=== PATIENT | female | born 1965 | race American Indian/Alaskan Native ===

== ENCOUNTER 2016-07-17 09:06 | Outpatient (CLI) | payer BC ==
--- NOTE | 2016-07-17 16:37 | Mammography Report ---
Diagnostic left mammogram and targeted left breast ultrasound. History: Recall for left parenchymal asymmetry. Findings: Spot compression images in both projections and a 90 degree view confirmed the presence of an ovoid shaped parenchymal asymmetry at the 9:00 position approximately 5 cm from the nipple. Targeted ultrasound demonstrates an ovoid shaped complex lesion measuring 5 x 3 mm corresponding in size and location to the mammographic density. The margins are circumscribed and there is no acoustic shadowing. Low level anterior echoes are present. Impression: 5 mm lesion described above demonstrates benign imaging features, probably representing a complex cyst. BI-RADS code: 3. Recommendation: A six-month followup study is recommended.
== END 2016-07-17 09:07 | disposition home or self-care (01) ==
LOC: MAMMO 09:06
PROVIDERS: ATTEND Obstetrics & Gynecology
DX: N64.89 Other specified disorders of breast (principal)
CPT/HCPCS: 76642; G0206

== ENCOUNTER 2016-08-01 08:48 | Outpatient (CLI) | payer BC ==
[2016-08-01 09:34] LABS: Alanine Aminotransferase 116 units/L (7-56); Albumin 4.1 g/dL (3.9-5); Albumin/Globulin Ratio 1.1 %; Alkaline Phosphatase 213 units/L (35-129); Bilirubin,Direct < 0.2 mg/dL (0-0.2); Bilirubin,Total 0.8 mg/dL (0.1-1.2); Total Protein 7.8 g/dL (6.3-8.2)
== END 2016-08-01 08:49 | disposition home or self-care (01) ==
LOC: LAB 08:48
PROVIDERS: ATTEND Obstetrics & Gynecology
DX: Z11.3 Encounter for screening for infections with a predominantly sexual mode of transmission (principal); R94.5 Abnormal results of liver function studies
CPT/HCPCS: 36415; 80074; 86689; 86706; 86803

== ENCOUNTER 2017-05-30 09:26 | Outpatient (CLI) | payer BC ==
[2017-05-30 09:38] LABS: Hematocrit 42.9 % (30.3-42.9); Hemoglobin 14.4 gm/dl (10.1-14.3); Mean Corpuscular HGB Conc 34 % (30-34); Mean Corpuscular Hemoglobin 32 pg (28-32); Mean Corpuscular Volume 94 fl (79-97); Platelet Count 224 K/mm3 (140-440); Red Blood Count 4.55 M/mm3 (3.65-5.03); Red Cell Distribution Width 13.3 % (13.2-15.2)
[2017-05-30 10:01] LABS: Alanine Aminotransferase 61 units/L (7-56); Albumin 4.3 g/dL (3.9-5); BUN/Creatinine Ratio 24; Blood Urea Nitrogen 19 mg/dL (7-17); Calcium 9.2 mg/dL (8.4-10.2); Chol/HDL Ratio 3.08 %; HDL Cholesterol 59 mg/dL (40-59); Hemolysis Index 3; LDL Cholesterol,Direct 112 mg/dL (50-130)
== END 2017-05-30 09:27 | disposition home or self-care (01) ==
LOC: LAB 09:26
PROVIDERS: ATTEND Obstetrics & Gynecology
DX: Z13.1 Encounter for screening for diabetes mellitus (principal); Z13.220 Encounter for screening for lipoid disorders; Z13.21 Encounter for screening for nutritional disorder; Z13.0 Encounter for screening for diseases of the blood and blood-forming organs and certain disorders involving the immune mechanism; Z11.3 Encounter for screening for infections with a predominantly sexual mode of transmission; R79.89 Other specified abnormal findings of blood chemistry
CPT/HCPCS: 36415; 80053; 80061; 82306; 83036; 84443; 85027; 86592; 86706; 86803; 87806

== ENCOUNTER 2017-08-15 09:42 | Outpatient (CLI) | payer BC ==
--- NOTE | 2017-08-17 11:46 | Mammography Report ---
BILATERAL DIGITAL SCREENING MAMMOGRAM with CAD and DIGITAL BREAST TOMOSYNTHESIS (DBT) : 08/15/17 CLINICAL: Routine screening. COMPARISON:06/14/16 and 08/11/14 mammograms. FINDINGS: The breasts are heterogeneously dense, which may obscure small masses. Surgical clips in the left upper breast. Bilateral scattered benign calcifications.Left lower inner benign intraparenchymal lymph node a 4 mm oval circumscribed left upper outer focal asymmetry is new compared to the previous exams and requires additional imaging. No architectural distortion or suspicious calcifications. IMPRESSION: Left asymmetry requiring additional imaging. BI-RADS CATEGORY: 0--Needs Additional Imaging RECOMMENDATION: Recall for targeted left upper outer breast ultrasound. COMMENT: Patient follow-up letters are generated by our [employer] application.
== END 2017-08-15 09:43 | disposition home or self-care (01) ==
LOC: MAMMO 09:42
PROVIDERS: ATTEND Obstetrics & Gynecology
DX: Z12.31 Encounter for screening mammogram for malignant neoplasm of breast (principal); Z98.890 Other specified postprocedural states
CPT/HCPCS: 77063; 77067

== ENCOUNTER 2017-11-05 10:07 | Outpatient (CLI) | payer BC ==
--- NOTE | 2017-11-05 13:56 | Ultrasound Report ---
Left breast ultrasound: Examination is performed based on screening tomomammogram in July indicating new small nodule in the upper-outer breast. Imaging in the area of concern demonstrates a 3.8 mm circumscribed homogeneous hypodensity in the 1:00 location 4 cm from the nipple. On the mammogram there is a similar nodule located at as well in the inferior breast. Ultrasound in the 5:00 location demonstrates a similar finding measuring 3.7 mm. No significant findings identified in the axilla. Impressions: The findings on both mammography and ultrasound are probably benign and may correlate. Recommendation: Repeat left tomomammogram in 6 months to confirm stability of these findings. BI-RADS CATEGORY: 3 = Probably benign ACR BI-RADS MAMMOGRAPHIC CODES: 0 = Needs additional imaging evaluation; 1 = Negative; 2 = Benign; 3 = Probably benign; 4 = Suspicious; 5 = Malignant; 6 = Known biopsy-proven malignancy COMMENT: 1. Dense breast tissue, i.e., adenosis, fibrocystic changes, etc., may obscure an underlying neoplasm. 2. Approximately 10% of cancers are not detected with mammography. 3. A negative mammography report should not delay biopsy if a clinically suspicious mass is present.
== END 2017-11-05 10:08 | disposition home or self-care (01) ==
LOC: US 10:07
PROVIDERS: ATTEND Obstetrics & Gynecology
DX: R92.8 Other abnormal and inconclusive findings on diagnostic imaging of breast (principal)

== ENCOUNTER → 2017-12-11 | Outpatient (CLI) | payer BC | END | disposition home or self-care (01) | LOC: LABHHL 11:44 | PROVIDERS: ATTEND Obstetrics & Gynecology | DX: N87.0 Mild cervical dysplasia (principal); N72 Inflammatory disease of cervix uteri; N88.8 Other specified noninflammatory disorders of cervix uteri | CPT/HCPCS: 88305; 88307 ==

== ENCOUNTER 2018-05-07 09:12 | Outpatient (CLI) | payer BC ==
[2018-05-07 09:21] LABS: Hematocrit 42.2 % (30.3-42.9); Hemoglobin 14.6 gm/dl (10.1-14.3); Mean Corpuscular HGB Conc 35 % (30-34); Mean Corpuscular Volume 95 fl (79-97); Platelet Count 194 K/mm3 (140-440); Red Blood Count 4.44 M/mm3 (3.65-5.03); Red Cell Distribution Width 13.1 % (13.2-15.2)
[2018-05-07 09:48] LABS: Alanine Aminotransferase 266 units/L (7-56); Albumin 4.4 g/dL (3.9-5); BUN/Creatinine Ratio 9; Blood Urea Nitrogen 7 mg/dL (7-17); Calcium 9.8 mg/dL (8.4-10.2); Hemolysis Index 2; LDL Cholesterol,Direct 132 mg/dL (50-130)
[2018-05-07 10:14] LABS: Chol/HDL Ratio 3.04 %; HDL Cholesterol 67 mg/dL (40-59)
[2018-05-07 10:33] LABS: Total Cells Counted 100
[2018-05-07 10:35] LABS: Anisocytosis 1+; Platelet Estimate Consistent w Auto
== END 2018-05-07 09:13 | disposition home or self-care (01) ==
LOC: LAB 09:12
PROVIDERS: ATTEND Internal Medicine
DX: J45.909 Unspecified asthma, uncomplicated (principal); E66.09 Other obesity due to excess calories; R94.5 Abnormal results of liver function studies
CPT/HCPCS: 36415; 80053; 80061; 82306; 82607; 83036; 84443; 85007; 85025

== ENCOUNTER 2018-05-18 07:58 | Day surgery (SDC) | payer BC ==
[2018-05-18] MEDS ORDERED: NACL 0.9% 1000 ML 1,000 ML ONE (08:09)
--- NOTE | 2018-05-18 08:21 | Anesthesia Day of Surgery ---
Anesthesia Day of Surgery - Day of Surgery Patient Examined: Yes Patient H&P Reviewed: Yes Patient is NPO: Yes
--- NOTE | 2018-05-18 08:21 | Anesthesia Consultation ---
Anesthesia Consult and Med Hx Date of service: 05/18/18 - Airway Anesthetic Teeth Evaluation: Good ROM Head & Neck: Adequate Mental/Hyoid Distance: Adequate Mallampati Class: Class II Intubation Access Assessment: Probably Good - Pulmonary Exam CTA: Yes - Cardiac Exam Cardiac Exam: RRR - Pre-Operative Health Status ASA Pre-Surgery Classification: ASA3 Proposed Anesthetic Plan: MAC - Pulmonary Hx Asthma: Yes (Recently on steroid taper. Presently breathing at baseline)
[2018-05-18] MEDS ORDERED: WATER FOR IRRIG STERILE ONE (08:24)
[2018-05-18] MEDS ORDERED: WATER FOR IRRIG STERILE IR ONE (08:24)
[2018-05-18] MEDS ORDERED: DIPRIVAN 10 MG/ML IV ONE ×2 (08:35)
[2018-05-18] MEDS ORDERED: NACL 0.9% 1000 ML 1,000 ML IV SCH (09:00)
--- NOTE | 2018-05-18 09:07 | Short Stay Summary ---
Short Stay Documentation Date of service: 05/18/18 Narrative H&P: see scanned clinic H&P for details. 52 yo female h/o breast surgery here for screening colonoscopy. No prior colonoscopy in the past. - History H&P: obtained from office Past Surgical History: Other (breast surgery) Social history: no significant social history - Allergies and Medications Current Medications: Allergies No Known Allergies Allergy (Unverified 06/14/16 07:57) Active Medications Sodium Chloride (Nacl 0.9% 1000 Ml) 1,000 mls @ 50 mls/hr IV DIRECT MANDY Last Admin: 05/18/18 08:15 Dose: 50 mls/hr Documented by: - Physical exam General appearance: no acute distress Lungs: Clear to auscultation Heart: Regular rate Gastrointestinal: normal, normoactive bowel sounds, no tenderness, no distended Extremities: No edema - Brief post op/procedure progress note Date of procedure: 05/18/18 Pre-op diagnosis: colon cancer screening Post-op diagnosis: other (transverse colon polyp) Procedure: Colonoscopy Anesthesia: MAC Findings: transverse colon polyp Surgeon: DOREEN MURPHY Estimated blood loss: minimal Pathology: list (Jar 1: transverse colon polyp) Specimen disposition: to lab Condition: stable - Disposition Condition at discharge: Good Disposition: DC-01 TO HOME OR SELFCARE - Discharge Diagnoses (1) Colon polyp Status: Acute Short Stay Discharge Plan Follow up with: SOHAIL BAEZ MD [Primary Care Provider] - 7 Days
--- NOTE | 2018-05-18 09:15 | Operative Report ---
Operative Report Operative Report: Date of procedure: 05/18/2018 Preprocedure diagnosis: colon cancer screening Post procedure diagnosis: transverse colon polyp Procedure: Colonoscopy to the cecum with biopsy Endoscopist: Truong Castro MD Anesthesia: Monitored anesthesia care per anesthesia department Estimated blood loss: minimal Medications: Monitored anesthesia care. See separate report by anesthesia for details. After careful discussion of the nature and purpose of the procedure as well as details of the technique risks benefits and alternatives the patient gave consent. Please see recent history and physical from the office. The patient was placed in the left lateral decubitus position and medicated per anesthesia. A rectal exam was performed sphincter tone was normal there were no masses palpable. The Spocklyn 570 scope was passed transanally and advanced under continuous direct vision with some difficulty to the cecum. Abdominal pressure applied and position change done. The prep quality was good. Findings: 1.A <5 mm sessile polyp in the transverse colon removed with cold forcep biopsy. 2. Diverticulosis in the right colon and sigmoid colon. 3. Otherwise, normal exam. The procedure was well-tolerated overall and the patient was observed in recovery. Conclusions: 1. A diminutive transverse colon polyp removed. 2. Right colon and sigmoid colon diverticulosis. 3. A complete colonoscopy to the cecum. Plan: 1. Discharge home after recovery. 2. Follow up on pathology results. 3. Surveillance colonoscopy in 5-10 years pending path results.
[2018-05-18 09:32] VITALS: BP 136/89
--- NOTE | 2018-05-18 09:36 | Post Anesthesia Evaluation ---
- Post Anesthesia Evaluation Patient Participated: Yes Airway Patent: Yes Stable Respiratory Function: Yes Temp > 96.8F: Yes Pain Manageable: Yes Adequeate Hydration: Yes Anesthesia Complications: No
== END 2018-05-18 07:59 | disposition home or self-care (01) ==
LOC: GIO 07:58
PROVIDERS: ATTEND Internal Medicine Gastroenterology
DX: Z12.11 Encounter for screening for malignant neoplasm of colon (principal); K63.5 Polyp of colon; K57.30 Diverticulosis of large intestine without perforation or abscess without bleeding; K63.89 Other specified diseases of intestine; J45.909 Unspecified asthma, uncomplicated; Z79.899 Other long term (current) drug therapy
CPT/HCPCS: 45380; 88305; J2704; J7030

== ENCOUNTER 2018-07-14 08:23 | Outpatient (CLI) | payer BC ==
--- NOTE | 2018-07-15 09:31 | Ultrasound Report ---
BILATERAL DIGITAL DIAGNOSTIC MAMMOGRAM with CAD and LEFT BREAST ULTRASOUND: 07/14/18 08:23:00 CLINICAL: Followup for a 4 mm oval density which has only been identified on 3-D tomosynthesis (DBT) images and for abnormalities identified by previous ultrasound. The patient declined 3-D tomosynthesis (DBT) for this exam. COMPARISON:08/15/17 3-D tomosynthesis (DBT) and 11/05/17 left breast ultrasound. FINDINGS: There are bilateral scattered fibroglandular densities. No mass or asymmetry to correlate with the previously identified 4 mm oval circumscribed left upper outer density.No mass, architectural distortion or suspicious calcifications. Ultrasound of the left breast demonstrated a stable oval slightly irregular cyst at 1 o'clock 4 cm from the nipple measuring 4 x 2 x 3 mm. A similar previous finding at 5 o'clock is no longer identified. Ultrasound of the left axilla demonstrated two superficial cyst contiguous to the skin measuring 7 and 6 mm each. IMPRESSION: Negative mammogram and benign findings on ultrasound. Axillary cysts are likely benign sebaceous cysts. BI-RADS CATEGORY: 2 - - Benign RECOMMENDATION: Routine mammographic screening in one year. ACR BI-RADS MAMMOGRAPHIC CODES: 0 = Needs additional imaging evaluation; 1 = Negative; 2 = Benign; 3 = Probably benign; 4 = Suspicious; 5 = Malignant; 6 = Known biopsy-proven malignancy COMMENT: 1. Dense breast tissue, i.e., adenosis, fibrocystic changes, etc., may obscure an underlying neoplasm. 2. Approximately 10% of cancers are not detected with mammography. 3. A negative mammography report should not delay biopsy if a clinically suspicious mass is present. COMMENT: Patient follow-up letters are generated by our [employer] application.
== END 2018-07-14 08:24 | disposition home or self-care (01) ==
LOC: MAMMO 08:23
PROVIDERS: ATTEND Obstetrics & Gynecology
DX: N60.02 Solitary cyst of left breast (principal); J45.909 Unspecified asthma, uncomplicated
CPT/HCPCS: 77066

== ENCOUNTER 2018-10-12 09:30 | Outpatient (CLI) | payer BC ==
[2018-10-12 09:50] LABS: Hematocrit 40.2 % (30.3-42.9); Mean Corpuscular HGB Conc 35 % (30-34); Mean Corpuscular Volume 94 fl (79-97); Platelet Count 198 K/mm3 (140-440); Red Blood Count 4.26 M/mm3 (3.65-5.03); Red Cell Distribution Width 13.4 % (13.2-15.2)
[2018-10-12 10:19] LABS: Alanine Aminotransferase 51 units/L (7-56); Albumin 4.3 g/dL (3.9-5); BUN/Creatinine Ratio 21; Blood Urea Nitrogen 17 mg/dL (7-17); Calcium 9.3 mg/dL (8.4-10.2); HDL Cholesterol 57 mg/dL (40-59); Hemolysis Index 2; LDL Cholesterol,Direct 151 mg/dL (50-130)
[2018-10-15 10:02] LABS: Vitamin D, 25-OH, D2 <4 ng/mL
== END 2018-10-12 09:31 | disposition home or self-care (01) ==
LOC: LAB 09:30
PROVIDERS: ATTEND Obstetrics & Gynecology
DX: Z13.21 Encounter for screening for nutritional disorder (principal); Z13.0 Encounter for screening for diseases of the blood and blood-forming organs and certain disorders involving the immune mechanism; Z11.3 Encounter for screening for infections with a predominantly sexual mode of transmission; Z13.220 Encounter for screening for lipoid disorders; J45.909 Unspecified asthma, uncomplicated
CPT/HCPCS: 36415; 80053; 80061; 82306; 83036; 84443; 85027; 86592; 86706; 86803; 87806

== ENCOUNTER 2019-06-29 11:12 | Outpatient (CLI) | payer BC ==
--- NOTE | 2019-06-29 12:15 | XRay Report ---
CHEST 2 VIEWS INDICATION: R05 COUGH. COMPARISON: None. FINDINGS: Support devices: None. Heart: Within normal limits. Pulmonary vasculature: Normal. Lungs/pleura: No acute air space or interstitial disease. No pneumothorax. Additional findings: Surgical clips in the left anterior chest. IMPRESSION: 1. No acute findings. Signer Name: Lucas Cary MD Signed: 06/29/2019 12:10 PM Workstation Name: [id number]
== END 2019-06-29 11:13 | disposition home or self-care (01) ==
LOC: XRAY 11:12
PROVIDERS: ATTEND Internal Medicine
DX: R05 Cough (principal)
CPT/HCPCS: 71046

== ENCOUNTER 2019-07-05 10:48 | Emergency (ER) | payer BC ==
[2019-07-05 11:02] VITALS: BP 118/89
--- NOTE | 2019-07-05 11:07 | Emergency Department Report ---
Upper Respiratory HPI - HPI Chief Complaint: Adult Asthma Stated Complaint: COUGH Duration: 2 weeks URI Symptoms: Rhinorrhea: Yes, Sore Throat: No, Ear Pain: No, Cough: Yes, Shortness of Breath: No, Sick Contacts: No, Unable to Take Fluids: No, Urine Output Abnormal: No, Listless Behavior: No Other History: This is a 53-year-old female nontoxic well in [facility] with no signs of distress presents with dry nonproductive cough x2 weeks. Patient was seen by her PCP on 06/29/2019 in this hospital and had a normal chest xray. Patient denies any chest pain, shortness of breathe, fever, chills, nausea, vomiting, headache, stiff neck, abdominal pain, numbness or tingling. Patient denies any recent travels, long car rides, or recent hospital stays. Denies any allergies or significant PMH. - Home Meds and Allergies Home Medications: Previous Rx's Medication Instructions Recorded Last Taken Type Azithromycin [Zithromax Z-KIM] 250 mg PO DAILY #6 tablet 07/05/19 Unknown Rx Benzonatate [Tessalon Perles] 100 mg PO Q8HR PRN #20 capsule 07/05/19 Unknown Rx Prednisone [predniSONE 10 mg 10 mg PO .TAPER #1 tab.ds.pk 07/05/19 Unknown Rx (6-Day Pack, 21 Tabs)] Allergies/Adverse Reactions: Allergies Allergy/AdvReac Type Severity Reaction Status Date / Time No Known Allergies Allergy Unverified 06/14/16 07:57 ED Review of Systems ROS: Stated complaint: COUGH Other details as noted in HPI Constitutional: denies: chills, fever Eyes: denies: eye pain, eye discharge, vision change ENT: denies: ear pain, throat pain Respiratory: cough. denies: shortness of breath, wheezing Cardiovascular: denies: chest pain, palpitations Endocrine: no symptoms reported Gastrointestinal: denies: abdominal pain, nausea, diarrhea Genitourinary: denies: urgency, dysuria, discharge Musculoskeletal: denies: back pain, joint swelling, arthralgia Skin: denies: rash, lesions Neurological: denies: headache, weakness, paresthesias Psychiatric: denies: anxiety, depression Hematological/Lymphatic: denies: easy bleeding, easy bruising ED Past Medical Hx - Past Medical History Previous Medical History?: Yes Hx Asthma: Yes - Social History Smoking Status: Never Smoker Substance Use Type: None - Medications Home Medications: Home Medications Medication Instructions Recorded Confirmed Last Taken Type Azithromycin [Zithromax Z-KIM] 250 mg PO DAILY #6 tablet 07/05/19 Unknown Rx Benzonatate [Tessalon Perles] 100 mg PO Q8HR PRN #20 capsule 07/05/19 Unknown Rx Prednisone [predniSONE 10 mg 10 mg PO .TAPER #1 tab.ds.pk 07/05/19 Unknown Rx (6-Day Pack, 21 Tabs)] ED Bronchiolitis Physical Exam - Exam General: Vital signs noted. No distress. Alert and acting appropriately. Neurologic: Alert and oriented, no deficits. Musculoskeletal: Unremarkable. ED Bronchiolitis Tests - Testing Testing: CXR: Normal/Negative (06/29/2019) ED Physical Exam - General Limitations: No Limitations General appearance: alert, in no apparent distress - Head Head exam: Present: atraumatic, normocephalic - Eye Eye exam: Present: normal appearance - ENT ENT exam: Present: normal exam, normal orophraynx - Neck Neck exam: Present: normal inspection, full ROM. Absent: tenderness, meningismus, lymphadenopathy - Respiratory Respiratory exam: Present: normal lung sounds bilaterally. Absent: respiratory distress, wheezes, rales, rhonchi, stridor, chest wall tenderness, accessory muscle use, decreased breath sounds, prolonged expiratory - Cardiovascular Cardiovascular Exam: Present: regular rate, normal rhythm, normal heart sounds. Absent: bradycardia, tachycardia, irregular rhythm, systolic murmur, diastolic murmur, rubs, gallop - Extremities Exam Extremities exam: Present: normal inspection, full ROM - Back Exam Back exam: Present: normal inspection, full ROM - Neurological Exam Neurological exam: Present: alert, oriented X3, normal gait - Psychiatric Psychiatric exam: Present: normal affect, normal mood - Skin Skin exam: Present: warm, dry, intact, normal color. Absent: rash ED Course Vital Signs 07/05/19 11:00 Temperature 97.9 F Pulse Rate 77 Respiratory 18 Rate Blood Pressure 118/89 O2 Sat by Pulse 100 Oximetry - Reevaluation(s) Reevaluation #1: 07/05/19 11:09 Patient is speaking in full sentences with no signs of distress noted. ED Medical Decision Making - Medical Decision Making 53-year-old female that presents with bronchitis like symptoms. Patient is stable and was examined by me. Will treat empirecally with Zpack due to continuing and worsening of symptoms. Vital signs are stable. Patient was instructed to Follow-up with a primary care doctor in 3-5 days or if symptoms worsen and continue return to emergency room as soon as possible. At time of discharge, the patient does not seem toxic or ill in appearance. No acute signs of distress noted. Patient agrees to discharge treatment plan of care. No further questions noted by the patient. Critical care attestation.: If time is entered above; I have spent that time in minutes in the direct care of this critically ill patient, excluding procedure time. ED Disposition Clinical Impression: Bronchitis Disposition: DC-01 TO HOME OR SELFCARE Is pt being admited?: No Does the pt Need Aspirin: No Condition: Stable Instructions: Chronic Bronchitis (ED) Additional Instructions: Follow-up with a primary care doctor in 3-5 days or if symptoms worsen and continue return to emergency room as soon as possible. Prescriptions: Prednisone [predniSONE 10 mg (6-Day Pack, 21 Tabs)] 10 mg PO .TAPER #1 tab.ds.pk Benzonatate [Tessalon Perles] 100 mg PO Q8HR PRN #20 capsule PRN Reason: Cough Azithromycin [Zithromax Z-KIM] 250 mg PO DAILY #6 tablet Referrals: PRIMARY CAREMD [Primary Care Provider] - 3-5 Days ALEJANDRO HUNTER MD [Staff Physician] - 3-5 Days [facility] [Outside] - 3-5 Days Forms: Work/School Release Form(ED)
== END 2019-07-05 11:15 | disposition home or self-care (01) ==
LOC: ED 10:48
DX: J45.909 Unspecified asthma, uncomplicated (principal)
CPT/HCPCS: 99282

== ENCOUNTER 2020-01-28 08:48 | Outpatient (CLI) | payer BC ==
--- NOTE | 2020-01-28 09:59 | XRay Report ---
BILATERAL FEET WEIGHTBEARING 0923 INDICATION: BILATERAL FOOT PAIN COMPARISON: None available. FINDINGS: No fractures or dislocations are seen. Surgical changes with plate and screws are seen in t he proximal portion of the right first metatarsal. Bilateral first metatarsophalangeal arthritic hassan ges are seen, worse on the right. Mild bilateral hallux valgus is noted. Mild right and prominent lef t inferior calcaneal spurring are noted. Slight partial degenerative changes are seen. Signer Name: Prashant Solomon MD Signed: 01/28/2020 9:54 AM Workstation Name: [id number]
== END 2020-01-28 08:49 | disposition home or self-care (01) ==
LOC: XRAY 08:48
PROVIDERS: ATTEND Orthopaedic Surgery
DX: M19.072 Primary osteoarthritis, left ankle and foot (principal); M19.071 Primary osteoarthritis, right ankle and foot; M77.32 Calcaneal spur, left foot; M77.31 Calcaneal spur, right foot; M20.12 Hallux valgus (acquired), left foot; M20.11 Hallux valgus (acquired), right foot

== ENCOUNTER 2020-03-08 08:58 | Outpatient (CLI) | payer BC ==
[2020-03-08 09:51] LABS: Basophils # (Auto) 0.1 K/mm3 (0.0-0.1); Basophils % (Auto) 0.8 % (0.0-1.8); Eosinophils # (Auto) 0.1 K/mm3 (0.0-0.4); Eosinophils % (Auto) 0.7 % (0.0-4.3); Hematocrit 41.1 % (30.3-42.9); Hemoglobin 13.8 gm/dl (10.1-14.3); Lymphocytes # (Auto) 2.3 K/mm3 (1.2-5.4); Lymphocytes % (Auto) 33.2 % (13.4-35.0); Mean Corpuscular HGB Conc 34 % (30-34); Mean Corpuscular Volume 95 fl (79-97); Monocytes # (Auto) 0.6 K/mm3 (0.0-0.8); Monocytes % (Auto) 8.2 % (0.0-7.3); Platelet Count 241 K/mm3 (140-440); Red Blood Count 4.31 M/mm3 (3.65-5.03); Red Cell Distribution Width 13.1 % (13.2-15.2)
[2020-03-08 09:55] LABS: Bilirubin,Urine NEG (Negative); Blood,Urine NEG (Negative); Color,Urine Colorless (Yellow); Protein,Urine <15 mg/dL mg/dL (Negative); RBC,Urine < 1.0 /HPF (0.0-6.0); Urobilinogen,Urine < 2.0 mg/dL (<2.0); WBC,Urine < 1.0 /HPF (0.0-6.0)
[2020-03-08 10:34] LABS: Alanine Aminotransferase 49 units/L (7-56); Albumin 4.4 g/dL (3.9-5); BUN/Creatinine Ratio 14; Blood Urea Nitrogen 13 mg/dL (7-17); Chol/HDL Ratio 3.37 %; HDL Cholesterol 67 mg/dL (40-59); Hemolysis Index 1; LDL Cholesterol,Direct 164 mg/dL (50-130)
== END 2020-03-08 08:59 | disposition home or self-care (01) ==
LOC: LAB 08:58
PROVIDERS: ATTEND Internal Medicine
DX: E78.5 Hyperlipidemia, unspecified (principal); R73.03 Prediabetes; Z00.00 Encounter for general adult medical examination without abnormal findings; Z13.21 Encounter for screening for nutritional disorder
CPT/HCPCS: 36415; 80053; 80061; 81001; 83036; 84443; 85025

== ENCOUNTER 2020-03-30 09:44 | Day surgery (SDC) | payer BC ==
[~2020-03-30 09:44] MED LIST: ceFAZolin/Water 2 GM/20 ML 2 GM/20 ML SYRINGE IV NR
[2020-03-30] MEDS ORDERED: LACTATED RINGERS 1,000 ML ONE (10:30)
[2020-03-30] MEDS ORDERED: LACTATED RINGERS 1,000 ML IV SCH (11:00)
[2020-03-30] MEDS ORDERED: MIDAZOLAM 2 MG/2 ML INJ IV SCH (11:29)
[2020-03-30] MEDS ORDERED: ACETAMINOPHEN 500 MG TAB PO SCH (11:29)
[2020-03-30] MEDS ORDERED: CELECOXIB 200 MG CAP PO SCH (11:31)
--- NOTE | 2020-03-30 12:40 | Anesthesia Day of Surgery ---
Anesthesia Day of Surgery - Day of Surgery Patient Examined: Yes Patient H&P Reviewed: Yes Patient is NPO: Yes
[2020-03-30] MEDS ORDERED: HYDROmorphone 1 MG/1 ML INJ IV PRN (12:42)
[2020-03-30] MEDS ORDERED: ONDANSETRON 4 MG/2 ML INJ IV PRN (12:42)
--- NOTE | 2020-03-30 12:42 | Anesthesia Consultation ---
Anesthesia Consult and Med Hx Date of service: 03/30/20 - Airway Anesthetic Teeth Evaluation: Bridges ROM Head & Neck: Adequate Mental/Hyoid Distance: Adequate Mallampati Class: Class II Intubation Access Assessment: Good - Pre-Operative Health Status ASA Pre-Surgery Classification: ASA2 Proposed Anesthetic Plan: General - Pulmonary Hx Smoking: No Hx Asthma: Yes (NO [place]-bothers her with change of weather; has been stable) Hx Respiratory Symptoms: No (+2FS) COPD: No Hx Pneumonia: No Hx Sleep Apnea: No (DANILO PRE SCREEN LOW RISK) - Cardiovascular System Hx Hypertension: No Hx Heart Attack/AMI: No Hx Pacemaker: No Hx Internal Defibrillator: No Hx Heart Murmur: No - Central Nervous System Hx Seizures: No Hx Back Pain: No Hx Psychiatric Problems: No - Endocrine Hx End Stage Renal Disease: No Hx Cirrhosis: No Hx Liver Disease: No Hx Non-Insulin Dependent Diabetes: No - Hematic Hx Anemia: No Hx Sickle Cell Disease: No - Other Systems Hx Alcohol Use: No Hx Substance Use: No Hx Cancer: No Hx Obesity: Yes
[2020-03-30] MEDS ORDERED: BUPIVACAINE/PF (0.5%) 5 MG/1 ML 30 ML VIAL INFILTRATI ONE ×2 (13:01→15:15)
[2020-03-30] MEDS ORDERED: NEOMY 40 MG/POLYMYXIN B 200,000 UNITS/ML (GU) AMPULE IR ONE (13:02)
[2020-03-30] MEDS ORDERED: propofoL 200 MG/20 ML VIAL IV ONE (14:32)
[2020-03-30] MEDS ORDERED: HYDROmorphone 1 MG/1 ML INJ ONE (14:32)
[2020-03-30] MEDS ORDERED: LIDOCAINE MPF (2%) 20 MG/1 ML VIAL 5 ML ONE (14:32)
[2020-03-30] MEDS ORDERED: SODIUM CHLORIDE 0.9% IRR 1,500 ML BOTTLE IR ONE (15:15)
[2020-03-30] MEDS ORDERED: methylPREDNISolone ACETATE 40 MG/1 ML INJ INTRA-ARTI ONE (15:15)
[2020-03-30] MEDS ORDERED: methylPREDNISolone ACETATE 40 MG/1 ML INJ ONE (15:15)
[2020-03-30] MEDS ORDERED: ONDANSETRON 4 MG/2 ML INJ ONE (15:30)
--- NOTE | 2020-03-30 15:54 | Procedure Note ---
Date of procedure: 03/30/20 Pre-op diagnosis: Plantar fasciitis right heel Post-op diagnosis: same Procedure: Endoscopic plantar fascia release [right] heel Procedure The patient was brought to the OR and placed in the OR table in supine position following induction with Mac anesthesia the patient's [right] lower extremity was prepped and draped in the usual sterile manner. A timeout procedure was done to identify the patient and the correct operative site A stab wound was mad e along the medial border of the calcaneus next a soft tissue probe was inserted with the first metatarsophalangeal joint dorsiflexed we able to palpate the plantar fascia care was taken to advance the probe plantar to the plantar fascia this and then brought out along the lateral border using a 15 blade the lateral incision was made following a C cannula was inserted over the lateral portion of the probe and passed medially. At this point care was taken to remove any soft tissue obstructing our view the arthroscope was then inserted laterally and the plantar fascia was identified and the central slip was seen. The arthroscopic knife was brought in the central band was released care was taken to maintain the lateral bands of the plantar fascia Wound was copiously irrigated and the stab wounds were repaired using skin glue followed by insertion insertion of a Marcaine and Depo-Medrol mixture routine compressive dressings were applied patient tolerated the procedure and there were no complications. She was extubated and taken to postanesthesia recovery in stable condition Anesthesia: MAC Surgeon: SOHAIL DUMONT Research Instrumentation Technician: JADEN COSME Estimated blood loss: minimal Pathology: none Condition: stable Disposition: PACU
[2020-03-30] MEDS ORDERED: HYDROcodone/ACETAMINOPHEN 5-325 MG TAB ONE (16:41)
[2020-03-30] MEDS ORDERED: HYDROcodone/ACETAMINOPHEN 5-325 MG TAB PO PRN (16:43)
[2020-03-30] MEDS: HYDROmorphone 1 MG/1 ML INJ IV PRN ×2 (16:45→16:55)
--- NOTE | 2020-03-30 16:46 | Post Anesthesia Evaluation ---
- Post Anesthesia Evaluation Patient Participated: Yes Airway Patent: Yes Stable Respiratory Function: Yes Nausea/Vomiting: No Temp > 96.8F: Yes Pain Manageable: Yes Adequeate Hydration: Yes Anesthesia Complications: No Block Receding Appropriately: Not Applicable Patient on Ventilator: No
[2020-03-30 17:19] VITALS: BP 118/66
== END 2020-03-30 09:45 | disposition home or self-care (01) ==
LOC: OR 09:44
PROVIDERS: ATTEND Orthopaedic Surgery
DX: M72.2 Plantar fascial fibromatosis (principal); J45.909 Unspecified asthma, uncomplicated; Z20.828 Contact with and (suspected) exposure to other viral communicable diseases; E66.9 Obesity, unspecified; Z98.890 Other specified postprocedural states; Z79.899 Other long term (current) drug therapy; Z87.440 Personal history of urinary (tract) infections; Z68.35 Body mass index [BMI] 35.0-35.9, adult
CPT/HCPCS: 29893; J0690; J1030; J1170; J2250; J2405; J2704; J7120; U0003

== ENCOUNTER 2020-11-30 09:31 | Outpatient (CLI) | payer BC ==
[2020-11-30 10:33] LABS: Alanine Aminotransferase 32 units/L (7-56); Albumin 4.6 g/dL (3.9-5); BUN/Creatinine Ratio 18; Blood Urea Nitrogen 14 mg/dL (7-17); Calcium 10.2 mg/dL (8.4-10.2); Chol/HDL Ratio 3.92 %; HDL Cholesterol 52 mg/dL (40-59); Hemolysis Index 1; LDL Cholesterol,Direct 144 mg/dL (50-130)
[2020-11-30 12:35] LABS: Hepatitis C Virus Antibody Non-Reactive (NonReactive)
[2020-12-03 12:34] LABS: Vitamin D, 25-OH, D2 <4 ng/mL
[2020-12-27 08:13] LABS: HIV-1 Antibody Differentiation SEE SCANNED RESULT; HIV-2 Antibody Differentiation SEE SCANNED RESULT
== END 2020-11-30 09:32 | disposition home or self-care (01) ==
LOC: LAB 09:31
PROVIDERS: ATTEND Obstetrics & Gynecology
DX: Z13.1 Encounter for screening for diabetes mellitus (principal); Z13.29 Encounter for screening for other suspected endocrine disorder; Z13.0 Encounter for screening for diseases of the blood and blood-forming organs and certain disorders involving the immune mechanism; Z11.3 Encounter for screening for infections with a predominantly sexual mode of transmission
CPT/HCPCS: 36415; 80053; 80061; 82306; 83001; 83036; 84443; 86592; 86689; 86706; 86803; 87529

== ENCOUNTER 2021-01-04 10:41 | Outpatient (CLI) | payer BC ==
--- NOTE | 2021-01-05 09:53 | Mammography Report ---
DIGITAL SCREENING MAMMOGRAM WITH CAD, 01/04/2021 CLINICAL INFORMATION / INDICATION: Routine screening mammography. TECHNIQUE: Digital bilateral 2D mammography was obtained in the craniocaudal and mediolateral obliqu e projections. This examination was interpreted with the benefit of Computer-Aided Detection analysis . COMPARISON: 07/04/2018, 08/15/2017, 06/24/2016 FINDINGS: Breast Density: There are scattered areas of fibroglandular density. No dominant mass, suspicious calcifications, or architectural distortion in either breast. Postsurgical changes are again noted in the left breast. IMPRESSION: No mammographic evidence of malignancy. Follow up recommendation: Routine yearly BI-RADS Category 2: Benign. A "normal" or negative report should not discourage follow up or biopsy of a clinically significant f inding. A written summary of these findings will be mailed to the patient. The patient will be entered into a mammography reporting system which will generate a reminder letter for the patient's next appointmen t at the appropriate interval. The [employer] recommends yearly mammograms starting at age 40 and continuing as l kelsie as a woman is in good health. Breast MRI is recommended for women with an approximate 20-25% or greater lifetime risk of breast cancer, including women with a strong family history of breast or ova umair cancer or who have been treated for Hodgkin's disease. Signer Name: Nasreen Akers MD Signed: 01/05/2021 9:48 AM Workstation Name: [id number]
== END 2021-01-04 10:42 | disposition home or self-care (01) ==
LOC: MAMMO 10:41
PROVIDERS: ATTEND Obstetrics & Gynecology
DX: Z12.31 Encounter for screening mammogram for malignant neoplasm of breast (principal)
CPT/HCPCS: 77067

== ENCOUNTER 2021-06-14 11:01 | Outpatient (CLI) | payer BC ==
[2021-06-14 11:18] LABS: Basophils % (Auto) 0.8 % (0.0-1.8); Eosinophils # (Auto) 0.1 K/mm3 (0.0-0.4); Eosinophils % (Auto) 1.5 % (0.0-4.3); Hematocrit 43.1 % (30.3-42.9); Hemoglobin 14.1 gm/dl (10.1-14.3); Lymphocytes # (Auto) 2.9 K/mm3 (1.2-5.4); Lymphocytes % (Auto) 44.8 % (13.4-35.0); Mean Corpuscular HGB Conc 33 % (30-34); Mean Corpuscular Volume 96 fl (79-97); Monocytes # (Auto) 0.5 K/mm3 (0.0-0.8); Monocytes % (Auto) 8.1 % (0.0-7.3); Platelet Count 221 K/mm3 (140-440); Red Cell Distribution Width 13.9 % (13.2-15.2)
[2021-06-14 11:28] LABS: INR 0.88 (0.87-1.13)
[2021-06-14 11:38] LABS: Alanine Aminotransferase 40 units/L (7-56); Albumin 4.6 g/dL (3.9-5); BUN/Creatinine Ratio 17; Blood Urea Nitrogen 15 mg/dL (7-17); Calcium 10.1 mg/dL (8.4-10.2); Chol/HDL Ratio 3.84 %; HDL Cholesterol 59 mg/dL (40-59); Hemolysis Index 4; LDL Cholesterol,Direct 153 mg/dL (50-130)
== END 2021-06-14 11:02 | disposition home or self-care (01) ==
LOC: LAB 11:01
PROVIDERS: ATTEND Internal Medicine
DX: Z51.81 Encounter for therapeutic drug level monitoring (principal); I10 Essential (primary) hypertension; E78.5 Hyperlipidemia, unspecified; R94.6 Abnormal results of thyroid function studies
CPT/HCPCS: 36415; 80053; 80061; 84443; 85025; 85610

== ENCOUNTER 2021-08-12 06:38 | Emergency (ER) | payer BC ==
[2021-08-12 06:53] VITALS: BP 140/88
--- NOTE | 2021-08-12 07:38 | Emergency Department Report ---
ED Asthma HPI - General Chief Complaint: Adult Asthma Stated Complaint: SOB/COUGH Time Seen by Provider: 08/12/21 07:29 Source: patient Mode of arrival: Ambulatory Limitations: No Limitations - History of Present Illness Initial Comments: 55 y/op female p resents to ED c/o of feeling of Asthma flare up about to occur due to the development of URI symptoms. Complaint: wheezing -: Gradual, days(s) (4) Asthma History: childhood onset, history of frequent attac, history of prior ED visit Severity: mild Context: recent URI, ran out of meds Associated Symptoms: productive cough. denies: chest pain, hemoptysis, syncope - Related Data Home Medications Medication Instructions Recorded Confirmed Last Taken Tylenol /Codeine # 3 tab 1 tab PO Q6HR PRN 03/21/20 03/21/20 Unknown Previous Rx's Medication Instructions Recorded Last Taken Type HYDROcodone/APAP 5-325 [[place] 1 each PO Q6HR PRN #20 tablet 03/30/20 Unknown Rx 5-325 mg TAB] Albuterol Mdi (or & Nicu Only) 2 puff IH QID PRN #1 inhalation 08/12/21 Unknown Rx [ProAir HFA Inhaler] Benzonatate [Tessalon Perles] 100 mg PO Q8HR #20 capsule 08/12/21 Unknown Rx Montelukast [Singulair] 10 mg PO QPM #14 tablet 08/12/21 Unknown Rx predniSONE [Deltasone] 50 mg PO QDAY #5 tab 08/12/21 Unknown Rx Allergies Allergy/AdvReac Type Severity Reaction Status Date / Time No Known Allergies Allergy Verified 03/21/20 16:02 ED Review of Systems ROS: Stated complaint: SOB/COUGH Other details as noted in HPI Comment: All other systems reviewed and negative ED Past Medical Hx - Past Medical History Hx Hypertension: No Hx Heart Attack/AMI: No Hx Congestive Heart Failure: No Hx Diabetes: No Hx GERD: No Hx Liver Disease: No Hx Sickle Cell Disease: No Hx Arthritis: Yes Hx Headaches / Migraines: No Hx Seizures: No Hx Kidney Stones: No Hx Asthma: Yes (NO TX-bothers her with change of weather; has been stable) Hx COPD: No Hx Tuberculosis: No Hx HIV: No - Surgical History Hx Pacemaker: No Hx Internal Defibrillator: No Hx Breast Surgery: Yes (NICA BREAST REDUCTION & BX LT BREAST 2016) - Social History Smoking Status: Never Smoker - Medications Home Medications: Home Medications Medication Instructions Recorded Confirmed Last Taken Type Tylenol /Codeine # 3 tab 1 tab PO Q6HR PRN 03/21/20 03/21/20 Unknown History HYDROcodone/APAP 5-325 [[place] 1 each PO Q6HR PRN #20 tablet 03/30/20 Unknown Rx 5-325 mg TAB] Albuterol Mdi (or & Nicu Only) 2 puff IH QID PRN #1 inhalation 08/12/21 Unknown Rx [ProAir HFA Inhaler] Benzonatate [Tessalon Perles] 100 mg PO Q8HR #20 capsule 08/12/21 Unknown Rx Montelukast [Singulair] 10 mg PO QPM #14 tablet 08/12/21 Unknown Rx predniSONE [Deltasone] 50 mg PO QDAY #5 tab 08/12/21 Unknown Rx ED Physical Exam - General Limitations: No Limitations General appearance: alert, in no apparent distress - Head Head exam: Present: atraumatic, normocephalic - Eye Eye exam: Present: normal appearance, PERRL Pupils: Present: normal accommodation - ENT ENT exam: Present: mucous membranes moist - Neck Neck exam: Present: normal inspection - Respiratory Respiratory exam: Present: normal lung sounds bilaterally, wheezes. Absent: respiratory distress - Cardiovascular Cardiovascular Exam: Present: regular rate, normal rhythm. Absent: systolic murmur, diastolic murmur, rubs, gallop - GI/Abdominal GI/Abdominal exam: Present: soft, normal bowel sounds - Extremities Exam Extremities exam: Present: normal inspection - Back Exam Back exam: Present: normal inspection - Neurological Exam Neurological exam: Present: alert, oriented X3 - Psychiatric Psychiatric exam: Present: normal affect, normal mood - Skin Skin exam: Present: warm, dry, intact, normal color. Absent: rash ED Course Vital Signs 08/12/21 06:42 Temperature 98.5 F Pulse Rate 86 Respiratory 18 Rate Blood Pressure 140/88 O2 Sat by Pulse 98 Oximetry Critical care attestation.: If time is entered above; I have spent that time in minutes in the direct care o f this critically ill patient, excluding procedure time. ED Disposition Clinical Impression: Cough, Asthma Disposition: 01 HOME / SELF CARE / HOMELESS Is pt being admited?: No Does the pt Need Aspirin: No Condition: Stable Instructions: Asthma (ED), Asthma, Adult, Cough, Adult, How to Use a Dry Powder Inhaler, [id number] Referrals: [facility] [Provider Group] - 3-5 Days
== END 2021-08-12 08:33 | disposition home or self-care (01) ==
LOC: EEVIPCON 06:38 → ED 06:38
DX: J45.909 Unspecified asthma, uncomplicated (principal); M19.90 Unspecified osteoarthritis, unspecified site; Z79.899 Other long term (current) drug therapy
CPT/HCPCS: 99282

== ENCOUNTER 2021-08-18 07:54 | Emergency (ER) | payer BC ==
[2021-08-18 08:42] VITALS: BP 123/71
--- NOTE | 2021-08-18 10:20 | Emergency Department Report ---
ED Asthma HPI - General Chief Complaint: Upper Respiratory Infection Stated Complaint: COUGH PUI?: No Time Seen by Provider: 08/18/21 10:14 Source: patient Mode of arrival: Ambulatory Limitations: No Limitations - History of Present Illness Initial Comments: 55 y/o female comes in for cough. Was seen on 08/12/21 for the same complaint. Has a history of Asthma. Just completed a course of Steroids 50 mg daily for 5 days. Has been using her asthma medications. She is in no acute distress. Has not followed us with her PCP. Onset/Timin -: week(s) Asthma History: history of frequent attac Severity: mild Context: allergen exposure Associated Symptoms: dry cough - Related Data Current Asthma Therapy: inhaled bronchodilator, recent oral steroid Home Medications Medication Instructions Recorded Confirmed Last Taken Tylenol /Codeine # 3 tab 1 tab PO Q6HR PRN 03/21/20 03/21/20 Unknown Previous Rx's Medication Instructions Recorded Last Taken Type HYDROcodone/APAP 5-325 [[place] 1 each PO Q6HR PRN #20 tablet 03/30/20 Unknown Rx 5-325 mg TAB] Albuterol Mdi (or & Nicu Only) 2 puff IH QID PRN #1 inhalation 08/12/21 Unknown Rx [ProAir HFA Inhaler] Benzonatate [Tessalon Perles] 100 mg PO Q8HR #20 capsule 08/12/21 Unknown Rx Montelukast [Singulair] 10 mg PO QPM #14 tablet 08/12/21 Unknown Rx predniSONE [Deltasone] 50 mg PO QDAY #5 tab 08/12/21 Unknown Rx Fluticasone/Salmeterol [Advair 1 puff IH BID #1 unit 08/18/21 Unknown Rx Diskus 250-50 mcg] Allergies Allergy/AdvReac Type Severity Reaction Status Date / Time No Known Allergies Allergy Verified 03/21/20 16:02 ED Review of Systems ROS: Stated complaint: COUGH Other details as noted in HPI Comment: All other systems reviewed and negative ED Past Medical Hx - Past Medical History Previous Medical History?: Yes Hx Hypertension: No Hx Heart Attack/AMI: No Hx Congestive Heart Failure: No Hx Diabetes: No Hx GERD: No Hx Liver Disease: No Hx Sickle Cell Disease: No Hx Arthritis: Yes Hx Headaches / Migraines: No Hx Seizures: No Hx Kidney Stones: No Hx Asthma: Yes (NO [place]-bothers her with change of weather; has been stable) Hx COPD: No Hx Tuberculosis: No Hx HIV: No - Surgical History Past Surgical History?: Yes Hx Pacemaker: No Hx Internal Defibrillator: No Hx Breast Surgery: Yes (NICA BREAST REDUCTION & BX LT BREAST 2016) - Social History Smoking Status: Never Smoker Substance Use Type: None - Medications Home Medications: Home Medications Medication Instructions Recorded Confirmed Last Taken Type Tylenol /Codeine # 3 tab 1 tab PO Q6HR PRN 03/21/20 03/21/20 Unknown History HYDROcodone/APAP 5-325 [[place] 1 each PO Q6HR PRN #20 tablet 03/30/20 Unknown Rx 5-325 mg TAB] Albuterol Mdi (or & Nicu Only) 2 puff IH QID PRN #1 inhalation 08/12/21 Unknown Rx [ProAir HFA Inhaler] Benzonatate [Tessalon Perles] 100 mg PO Q8HR #20 capsule 08/12/21 Unknown Rx Montelukast [Singulair] 10 mg PO QPM #14 tablet 08/12/21 Unknown Rx predniSONE [Deltasone] 50 mg PO QDAY #5 tab 08/12/21 Unknown Rx Fluticasone/Salmeterol [Advair 1 puff IH BID #1 unit 08/18/21 Unknown Rx Diskus 250-50 mcg] ED Physical Exam - General Limitations: No Limitations General appearance: alert, in no apparent distress - Head Head exam: Present: atraumatic, normocephalic - Eye Eye exam: Present: normal appearance - ENT ENT exam: Present: mucous membranes moist - Neck Neck exam: Present: normal inspection - Respiratory Respiratory exam: Present: normal lung sounds bilaterally. Absent: respiratory distress, wheezes, rales - Cardiovascular Cardiovascular Exam: Present: regular rate, normal rhythm. Absent: systolic murmur, diastolic murmur, rubs, gallop - GI/Abdominal GI/Abdominal exam: Present: soft, normal bowel sounds - Extremities Exam Extremities exam: Present: normal inspection - Back Exam Back exam: Present: normal inspection - Neurological Exam Neurological exam: Present: alert, oriented X3 - Psychiatric Psychiatric exam: Present: normal affect, normal mood - Skin Skin exam: Present: warm, dry, intact, normal color. Absent: rash ED Course Vital Signs 08/18/21 08/18/21 08:40 09:43 Temperature 97.8 F Pulse Rate 94 H Respiratory 20 Rate Blood Pressure 123/71 [Right] O2 Sat by Pulse 97 97 Oximetry ED Medical Decision Making - Medical Decision Making 55 y/o female comes in for cough. Was seen on 08/12/21 for the same complaint. Has a history of Asthma. Just completed a course of Steroids 50 mg daily for 5 days. Has been using her asthma medications. She is in no acute distress. Has not followed us with her PCP. will prescribed inhaler steroids. No acute distress and no wheezing. Critical care attestation.: If time is entered above; I have spent that time in minutes in the direct care of this critically ill patient, excluding procedure time. ED Disposition Clinical Impression: Asthma Disposition: 01 HOME / SELF CARE / HOMELESS Is pt being admited?: No Does the pt Need Aspirin: No Condition: Stable Instructions: Asthma (ED), Cough, Adult, [id number]-[id number], Asthma, Adult, [id number], How to Use a Dry Powder Inhaler Additional Instructions: Continue with current asthma medication. Start Advair. Follow up with your PCP and Pulmonolgist. Prescriptions: Fluticasone/Salmeterol [Advair Diskus 250-50 mcg] 1 puff IH BID #1 unit Referrals: BARON MG MD [Staff Physician] - 3-5 Days Time of Disposition: 10:22
== END 2021-08-18 10:39 | disposition home or self-care (01) ==
LOC: ED 07:54
DX: J45.909 Unspecified asthma, uncomplicated (principal); M19.90 Unspecified osteoarthritis, unspecified site; Z79.899 Other long term (current) drug therapy; Z98.890 Other specified postprocedural states
CPT/HCPCS: 99282